=== PATIENT | male | born 1960 | race Caucasian/White ===

== ENCOUNTER 2024-03-26 09:52 | Emergency (ER) | payer MEDICARE, OTHER ==
[~2024-03-26 09:52] MED LIST: Albuterol 0.083% Nebule (2.5 MG/3 ML) IH ONE
[2024-05-01 06:34] LABS: D-DIMER 1.41 mg/L FEU (0.15-0.50)
== END 2024-03-26 12:26 | disposition home or self-care (01) ==
LOC: ED 09:52
PROVIDERS: Physician Assistant
DX: M79.661 Pain in right lower leg (principal)